=== PATIENT | female | born 1975 | race African-American/Black ===

== ENCOUNTER 2017-06-01 18:17 | Inpatient (IN) ==
[2017-06-01] MEDS ORDERED: ALUM/MAG/SIMETH/LIDO VISC 1:1 30 ML BOTTLE PO STA (19:52)
[2017-06-01] MEDS ORDERED: ONDANSETRON 4 MG/2 ML VIAL IV STA (19:52)
[2017-06-01] MEDS ORDERED: PANTOPRAZOLE 40 MG VIAL IV STA (19:52)
[2017-06-01] MEDS ORDERED: MORPHINE 2 MG/1 ML SYRINGE IV STA (19:52)
[2017-06-01] MEDS ORDERED: ONDANSETRON 4 MG/2 ML VIAL ONE (20:27)
[2017-06-01] MEDS ORDERED: MORPHINE 2 MG/1 ML SYRINGE ONE (20:27)
[2017-06-01] MEDS ORDERED: ALUM/MAG/SIMETH/LIDO VISC 1:1 30 ML BOTTLE PO ONE (20:27)
[2017-06-01] MEDS ORDERED: PANTOPRAZOLE 40 MG VIAL IV ONE (20:27)
[2017-06-01 20:51] LABS: Basophils # 0.1 10*3/uL (0.0-0.2); Basophils % 0.4 % (0.0-0.8); Eosinophils % 0.2 % (0.00-10.9); Hematocrit 36.5 VOL% (35.7-47.0); Hemoglobin 10.5 GM/DL (12.0-16.0); Immature Granulocytes % 0.4 %; Immature Granulocytes Absolute 0.05 #; Lymphocytes # 1.5 10*3/uL (1.4-4.0); Lymphocytes % 12.9 % (21.3-54.2); Mean Corpuscular HGB Conc 28.8 GM/DL (32-36); Mean Corpuscular Hemoglobin 19 PG (27-34); Mean Corpuscular Volume 66.5 FL (87-102); Mean Platelet Volume 9.8 FL (9.6-12.0); Monocytes # 0.4 10*3/uL (0.11-0.8); Monocytes % 3.7 % (1.7-12.7); NRBC # 0.02 10*3/uL; Neutrophils # 9.2 10*3/uL (1.4-7.4); Neutrophils % 82.4 % (38.7-73.9); Platelet Count 207 T/CUMM (130-400); Red Blood Count 5.49 MC/CUMM (3.8-5.5); Red Cell Distribution Width 21.4 % (9.3-17.3); White Blood Count 11.2 T/CUMM (4-12)
[2017-06-01 21:07] LABS: Anisocytosis 1+
[2017-06-01 21:08] LABS: Burr Cells Few; Elliptocytes Few; Platelet Estimate Adequate; Polychromasia Few; Schistocytes Few
[2017-06-01 21:14] LABS: Albumin 3.3 G/DL (3.4-5.0); Bilirubin,Total 2.1 MG/DL (0.2-1.0); Calcium 8.3 MG/DL (8.5-10.1); Magnesium 1.9 MG/DL (1.8-2.4); Osmolality,Calculated 277.4 MOS/KG (273-304); Potassium 4.2 MMOL/L (3.5-5.1); Total Protein 6.1 G/DL (6.4-8.3); Troponin I Only 0.03 NG/ML (0.00-0.045)
[2017-06-01 21:15] LABS: Lactic Acid 1.4 MMOL/L (0.4-2.0)
[2017-06-02] MEDS ORDERED: MORPHINE 2 MG/1 ML SYRINGE IV PRN (01:39)
[2017-06-02] MEDS ORDERED: DOCUSATE SODIUM 100 MG CAPSULE PO PRN (01:39)
[2017-06-02] MEDS: ONDANSETRON 4 MG/2 ML VIAL IV PRN ×2 (03:13→16:58)
[2017-06-02 05:58] LABS: Basophils % 0.5 % (0.0-0.8); Eosinophils # 0.1 10*3/uL (0.0-0.87); Eosinophils % 1.3 % (0.00-10.9); Hematocrit 32.8 VOL% (35.7-47.0); Hemoglobin 9.4 GM/DL (12.0-16.0); Immature Granulocytes % 0.4 %; Immature Granulocytes Absolute 0.03 #; Lymphocytes # 2.4 10*3/uL (1.4-4.0); Lymphocytes % 28.3 % (21.3-54.2); Mean Corpuscular HGB Conc 28.7 GM/DL (32-36); Mean Corpuscular Hemoglobin 19 PG (27-34); Mean Corpuscular Volume 67.1 FL (87-102); Mean Platelet Volume 10.7 FL (9.6-12.0); Monocytes # 0.6 10*3/uL (0.11-0.8); NRBC # 0.02 10*3/uL; Neutrophils # 5.3 10*3/uL (1.4-7.4); Neutrophils % 62.5 % (38.7-73.9); Platelet Count 220 T/CUMM (130-400); Red Blood Count 4.89 MC/CUMM (3.8-5.5); Red Cell Distribution Width 21.5 % (9.3-17.3); White Blood Count 8.4 T/CUMM (4-12)
[2017-06-02 06:33] LABS: Albumin 2.8 G/DL (3.4-5.0); Bilirubin,Total 2.4 MG/DL (0.2-1.0); Calcium 7.9 MG/DL (8.5-10.1); Osmolality,Calculated 276.4 MOS/KG (273-304); Total Protein 5.1 G/DL (6.4-8.3)
[2017-06-02 06:48] LABS: Macrocytosis 2+; Microcytosis 1+
[2017-06-02] MEDS: FUROSEMIDE 40 MG/4 ML VIAL IV SCH ×2 (09:17→17:03)
[2017-06-02] MEDS: LEVOFLOXACIN INJ 500 MG in PREMIX 1 EACH IV SCH (09:35)
[2017-06-02] MEDS ORDERED: REGADENOSON 0.4 MG/5 ML SYRINGE IV ONE (11:25)
[2017-06-02] MEDS: SPIRONOLACTONE 25 MG TABLET PO SCH (17:08)
[2017-06-02] MEDS: PANTOPRAZOLE 40 MG TABLET PO SCH (17:09)
[2017-06-02] MEDS: metroNIDAZOLE INJ 500 MG in PREMIX 1 EACH IV SCH ×3 (17:10→21:54)
[2017-06-02] MEDS: LISINOPRIL 10 MG TABLET PO SCH (17:30)
[2017-06-02] MEDS ORDERED: FAMOTIDINE 20 MG TABLET PO SCH (21:00)
[2017-06-03 09:55] LABS: Calcium 7.9 MG/DL (8.5-10.1); Magnesium 1.7 MG/DL (1.8-2.4); Osmolality,Calculated 278.3 MOS/KG (273-304); Potassium 3.1 MMOL/L (3.5-5.1)
[2017-06-03 10:01] LABS: Basophils % 0.5 % (0.0-0.8); Eosinophils # 0.2 10*3/uL (0.0-0.87); Hematocrit 33.8 VOL% (35.7-47.0); Hemoglobin 9.9 GM/DL (12.0-16.0); Immature Granulocytes % 0.5 %; Immature Granulocytes Absolute 0.04 #; Lymphocytes # 1.9 10*3/uL (1.4-4.0); Lymphocytes % 23.1 % (21.3-54.2); Mean Corpuscular HGB Conc 29.3 GM/DL (32-36); Mean Corpuscular Hemoglobin 19 PG (27-34); Mean Corpuscular Volume 65.9 FL (87-102); Monocytes # 0.7 10*3/uL (0.11-0.8); Monocytes % 8.6 % (1.7-12.7); Neutrophils # 5.3 10*3/uL (1.4-7.4); Neutrophils % 65.3 % (38.7-73.9); Platelet Count 193 T/CUMM (130-400); Red Blood Count 5.13 MC/CUMM (3.8-5.5); Red Cell Distribution Width 21.9 % (9.3-17.3)
[2017-06-03] MEDS: metroNIDAZOLE INJ 500 MG in PREMIX 1 EACH IV SCH ×3 (11:14→21:30)
[2017-06-03] MEDS: LISINOPRIL 10 MG TABLET PO SCH (11:15)
[2017-06-03] MEDS: FUROSEMIDE 40 MG/4 ML VIAL IV SCH ×2 (11:15→16:02)
[2017-06-03] MEDS: SPIRONOLACTONE 25 MG TABLET PO SCH (11:15)
[2017-06-03] MEDS: PANTOPRAZOLE 40 MG TABLET PO SCH (11:15)
[2017-06-03] MEDS: LEVOFLOXACIN INJ 500 MG in PREMIX 1 EACH IV SCH (11:15)
[2017-06-03 11:49] LABS: Albumin 2.9 G/DL (3.4-5.0); Bilirubin,Direct 0.37 MG/DL (0.0-0.20); Bilirubin,Total 2.4 MG/DL (0.2-1.0); Total Protein 5.1 G/DL (6.4-8.3)
[2017-06-03] MEDS ORDERED: ACETAMINOPHEN 325 MG TABLET PO PRN (12:25)
[2017-06-03] MEDS: ONDANSETRON 4 MG/2 ML VIAL IV PRN (18:05)
[2017-06-04] MEDS: metroNIDAZOLE INJ 500 MG in PREMIX 1 EACH IV SCH (04:45)
[2017-06-04 06:42] LABS: Albumin 2.9 G/DL (3.4-5.0); Bilirubin,Direct 0.35 MG/DL (0.0-0.20); Bilirubin,Indirect 1.8 MG/DL (0.0-1.0); Bilirubin,Total 2.1 MG/DL (0.2-1.0); Total Protein 5.5 G/DL (6.4-8.3)
[2017-06-04] MEDS: ONDANSETRON 4 MG/2 ML VIAL IV PRN ×2 (08:40→14:35)
[2017-06-04] MEDS: FUROSEMIDE 40 MG/4 ML VIAL IV SCH (08:45)
[2017-06-04] MEDS: SPIRONOLACTONE 25 MG TABLET PO SCH (10:34)
[2017-06-04] MEDS: LISINOPRIL 10 MG TABLET PO SCH (10:34)
[2017-06-04] MEDS: LEVOFLOXACIN INJ 500 MG in PREMIX 1 EACH IV SCH (10:35)
[2017-06-04] MEDS: PANTOPRAZOLE 40 MG TABLET PO SCH (10:35)
[2017-06-04] MEDS: URSODIOL 300 MG CAPSULE PO SCH ×2 (12:34→20:39)
[2017-06-04] MEDS ORDERED: POTASSIUM CHLORIDE 20 MEQ/15 ML UDCUP PER TUBE PRN (12:52)
[2017-06-04] MEDS: POTASSIUM CHLORIDE 20 MEQ TABLET PO PRN ×4 (13:13→22:39)
[2017-06-05 06:36] LABS: Basophils # 0.1 10*3/uL (0.0-0.2); Basophils % 0.6 % (0.0-0.8); Eosinophils # 0.3 10*3/uL (0.0-0.87); Eosinophils % 3.3 % (0.00-10.9); Hematocrit 42.5 VOL% (35.7-47.0); Hemoglobin 12.2 GM/DL (12.0-16.0); Immature Granulocytes % 0.5 %; Immature Granulocytes Absolute 0.05 #; Lymphocytes # 2.4 10*3/uL (1.4-4.0); Lymphocytes % 25.3 % (21.3-54.2); Mean Corpuscular HGB Conc 28.7 GM/DL (32-36); Mean Corpuscular Hemoglobin 19 PG (27-34); Mean Platelet Volume 10.4 FL (9.6-12.0); Monocytes # 0.9 10*3/uL (0.11-0.8); Monocytes % 9.8 % (1.7-12.7); Neutrophils # 5.7 10*3/uL (1.4-7.4); Neutrophils % 60.5 % (38.7-73.9); Platelet Count 251 T/CUMM (130-400); Red Blood Count 6.34 MC/CUMM (3.8-5.5); Red Cell Distribution Width 22.5 % (9.3-17.3); White Blood Count 9.4 T/CUMM (4-12)
[2017-06-05 07:04] LABS: Albumin 3.1 G/DL (3.4-5.0); Total Protein 5.9 G/DL (6.4-8.3)
[2017-06-05 07:05] LABS: Osmolality,Calculated 272.7 MOS/KG (273-304); Potassium 4.6 MMOL/L (3.5-5.1)
[2017-06-05 08:01] LABS: Elliptocytes Few; Giant Platelets Few; Hypochromasia 1+; Platelet Estimate Adequate
[2017-06-05] MEDS: LISINOPRIL 10 MG TABLET PO SCH (09:00)
[2017-06-05] MEDS: URSODIOL 300 MG CAPSULE PO SCH ×2 (09:00→20:12)
[2017-06-05] MEDS: SPIRONOLACTONE 25 MG TABLET PO SCH (09:00)
[2017-06-05] MEDS: PANTOPRAZOLE 40 MG TABLET PO SCH ×2 (09:00→19:35)
[2017-06-05] MEDS ORDERED: LIDOCAINE 100 MG/5 ML SYRINGE ONE (09:27)
[2017-06-05] MEDS ORDERED: PROPOFOL 200 MG/20 ML VIAL IV ONE (09:27)
[2017-06-05] MEDS: FUROSEMIDE 20 MG TABLET PO SCH (18:22)
[2017-06-05] MEDS: CARVEDILOL 3.125 MG TABLET PO SCH (18:22)
[2017-06-06] MEDS ORDERED: POTASSIUM CHLORIDE 20 MEQ TABLET PO SCH (11:30)
[2017-06-06 12:01] VITALS: BP 116/64
[2017-06-06] MEDS: URSODIOL 300 MG CAPSULE PO SCH (13:02)
[2017-06-06] MEDS: PANTOPRAZOLE 40 MG TABLET PO SCH (13:02)
[2017-06-06] MEDS: FUROSEMIDE 20 MG TABLET PO SCH (13:03)
[2017-06-06] MEDS: LISINOPRIL 10 MG TABLET PO SCH (13:03)
[2017-06-06] MEDS: SPIRONOLACTONE 25 MG TABLET PO SCH (13:03)
[2017-06-06] MEDS: CARVEDILOL 3.125 MG TABLET PO SCH (13:03)
== END 2017-06-06 15:01 | disposition home or self-care (01) | DRG 292 ==
LOC: N.EDINP 18:17 → N.ED 18:17 → N.2E 06-02 01:50
PROVIDERS: ADMIT Family Medicine; ATTEND Family Medicine